=== PATIENT | male | born 1980 | race Caucasian/White ===

== ENCOUNTER 2019-05-07 12:50 | Inpatient (IN) | payer MEDICAID ==
[2019-05-07] MEDS: FAMOTIDINE 20 MG INJ IV (14:34)
[2019-05-07] MEDS: morphine 2 MG INJ IV (14:34)
[2019-05-07] MEDS: SOD CHLORIDE 0.9% 1,000 ML IV (14:34)
[2019-05-07] MEDS: ONDANSETRON 4 MG INJ IV (14:34)
[2019-05-07] MEDS: PIPER-TAZO 3.375 GM IV (PMX) 100 ML IVPB (16:14)
[2019-05-07] MEDS: LACTATED RINGER'S 1,000 ML IV (16:22)
[2019-05-07] MEDS ORDERED: ONDANSETRON 4 MG INJ IV ×2 (16:30→18:00)
[2019-05-07] MEDS ORDERED: ACETAMINOPHEN 325 MG TAB PO ×2 (16:30→18:00)
[2019-05-07] MEDS ORDERED: ZOLPIDEM 5 MG TAB PO (18:00)
[2019-05-07] MEDS ORDERED: DOCUSATE SODIUM 100 MG CAP PO (18:00)
[2019-05-07] MEDS ORDERED: NACL 0.9% 3 ML SYG IV (18:00)
[2019-05-07] MEDS: HYDROCODONE/APAP (5/325) TAB PO (19:57)
[2019-05-07] MEDS: NS + KCL 20 MEQ 1,000 ML IV (19:57)
[2019-05-08] MEDS: PIPER-TAZO 3.375 GM IV (PMX) 100 ML IVPB ×5 (00:04→23:08)
[2019-05-08] MEDS: NS + KCL 20 MEQ 1,000 ML IV ×3 (05:43→23:08)
[2019-05-08] MEDS: HYDROCODONE/APAP (5/325) TAB PO (05:48)
[2019-05-08] MEDS: MAGNESIUM SULFATE 2 GM/50 ML 50 ML IVPB (12:15)
[2019-05-08] MEDS ORDERED: LIDOCAINE 1% (MPF) 30 ML INJ (15:52)
[2019-05-08] MEDS ORDERED: BUPIVACAINE 0.5%/EPI (SDV) 30 ML INJ (15:52)
[2019-05-08] MEDS ORDERED: PROPOFOL 200 MG INJ (16:35)
[2019-05-08] MEDS ORDERED: ROPIVACAINE 0.5 % 30 ML VIAL (16:36)
[2019-05-08] MEDS ORDERED: MIDAZOLAM 1 MG/ML 2 ML INJ (16:36)
[2019-05-08] MEDS ORDERED: ROCURONIUM 50 MG INJ (16:36)
[2019-05-08] MEDS ORDERED: LIDOCAINE 1% (MDV) 20 ML INJ (16:37)
[2019-05-08] MEDS ORDERED: CEFAZOLIN 1 GM INJ (16:53)
[2019-05-08] MEDS ORDERED: SUGAMMADEX SODIUM 200 MG/2 ML VIAL IV (17:19)
[2019-05-08] MEDS ORDERED: ONDANSETRON 4 MG INJ (17:19)
[2019-05-08] MEDS ORDERED: HYDROmorphONE 1 MG/5 ML IV SYRINGE IV ×2 (17:47→18:00)
[2019-05-08] MEDS ORDERED: MEPERIDINE 25 MG INJ (17:47)
[2019-05-08] MEDS: MEPERIDINE 25 MG INJ IV (17:56)
[2019-05-08] MEDS: ONDANSETRON 4 MG INJ IV (17:57)
[2019-05-08] MEDS: HYDROmorphONE 1 MG/5 ML IV SYRINGE IV ×2 (17:57→18:03)
[2019-05-08] MEDS ORDERED: FENTAnyl 50 MCG/ML VIAL IV ×3 (18:00)
[2019-05-08] MEDS ORDERED: EPHEDrine 25 MG/5 ML SYG IV (18:00)
[2019-05-08] MEDS ORDERED: MIDAZOLAM 1 MG/ML 2 ML INJ IV (18:00)
[2019-05-08] MEDS ORDERED: hydrALAzine 20 MG INJ IV (18:00)
[2019-05-08] MEDS ORDERED: RACEPINEPHRINE 2.25%(NEB) 0.5 ML AMP HHN (18:00)
[2019-05-08] MEDS ORDERED: METOCLOPRAMIDE 10 MG INJ IV (18:00)
[2019-05-08] MEDS ORDERED: LABETALOL HCL 20MG INJ IV (18:00)
[2019-05-08] MEDS ORDERED: IPRATROPIUM (NEB) 0.5 MG/2.5 ML AMP HHN (18:00)
[2019-05-08] MEDS ORDERED: ALBUMIN HUMAN 5% 250 ML IV (18:00)
[2019-05-08] MEDS ORDERED: TRIMETHOBENZAMIDE 100 MG/ML VIAL IM (18:00)
[2019-05-08] MEDS ORDERED: ONDANSETRON 4 MG INJ IV (18:00)
[2019-05-08] MEDS: morphine 2 MG INJ IV ×2 (19:00→23:05)
[2019-05-09] MEDS: HYDROCODONE/APAP (5/325) TAB PO ×3 (01:06→14:41)
[2019-05-09] MEDS: PIPER-TAZO 3.375 GM IV (PMX) 100 ML IVPB ×3 (05:51→18:00)
[2019-05-09] MEDS: NS + KCL 20 MEQ 1,000 ML IV ×2 (09:44→10:47)
== END 2019-05-09 18:34 | disposition home or self-care (01) | DRG 853 ==
LOC: FTE 12:50 → PP2 16:15
PROC: 0DTJ4ZZ Resection of Appendix, Percutaneous Endoscopic Approach (ICD-10-PCS; principal; 2019-05-08 16:37)
DX: A41.9 Sepsis, unspecified organism (principal); K35.32 Acute appendicitis with perforation, localized peritonitis, and gangrene, without abscess; N20.0 Calculus of kidney; K40.90 Unilateral inguinal hernia, without obstruction or gangrene, not specified as recurrent
CPT/HCPCS: 36415; 74176; 80048; 80053; 81001; 83036; 83690; 83735; 84100; 85025; 88304; 96374; 96375; 99285-25